=== PATIENT | female | born 1975 | race American Indian/Alaskan Native ===

== ENCOUNTER 2018-05-14 23:41 | Observation (INO) | payer MEDICAID ==
--- NOTE | 2018-05-14 23:51 | History and Physical Report ---
History of Present Illness Date of examination: 05/15/18 Date of admission: 05/15/2018 Chief complaint: vaginal bleeding History of present illness: Pt called provider last pm c/o having heavy bleeding since appointment on Thursday05/10/2018. She has long h/o menorrhagia and was most recently transfused last week at [facility]. She has had a hgb as low as 3. She presents c/o having used several pads per hour that were soaked and soiling clothing. She is scheduled for a Novasure ablation on Thursday05/21/[address] Wells. On Thursday she was to start lysteada but rx was not called in. I called in rx tonight as pt initially did not want to be admitted on her birthday , but meds were not covered by her insurance. Pt admitted for management of bleeding and transfusion if needed. 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 Assessment and Plan - Patient Problems (1) Dysfunctional uterine bleeding Current Visit: No Status: Acute Plan to address problem: -s/p office work up with negative EMBx -scheduled for novasure ablation Thursday05/21/18 -IV premarin followed by po provera until d/c home and surgery on Thursday -d/c home after transfusion if bleeding improved and stable. -plan of care d/w pt and all questions were addressed and answered. (2) Anemia Current Visit: Yes Status: Acute Qualifiers: Iron deficiency anemia type: chronic blood loss Plan to address problem: -transfusion -IV medications to slow progression of bleeding
[2018-05-14] MEDS ORDERED: ZOFRAN IV PRN (23:52)
[2018-05-14] MEDS ORDERED: AMBIEN PO PRN (23:52)
[2018-05-14] MEDS ORDERED: SODIUM CHLORIDE FLUSH SYRINGE 10 ML IV PRN (23:52)
[2018-05-15 01:14] LABS: Hematocrit 21.5 % (30.3-42.9); Hemoglobin 6.4 gm/dl (10.1-14.3); Mean Corpuscular HGB Conc 30 % (30-34); Platelet Count 361 K/mm3 (140-440); Red Blood Count 3.15 M/mm3 (3.65-5.03)
[2018-05-15 01:28] LABS: Mean Corpuscular Hemoglobin 20 pg (28-32); Mean Corpuscular Volume 68 fl (79-97); Red Cell Distribution Width 28.2 % (13.2-15.2)
[2018-05-15] MEDS ORDERED: NACL 0.9% 500 ML 500 ML IV ONE (01:52)
[2018-05-15] MEDS ORDERED: BENADRYL IV ONE (01:53)
[2018-05-15] MEDS ORDERED: WATER FOR INJ (PF) 10 ML ONE ×2 (02:12→08:01)
[2018-05-15] MEDS: PREMARIN IV SCH ×2 (02:31→08:16)
[2018-05-15 02:40] LABS: BUN/Creatinine Ratio 18; Blood Urea Nitrogen 11 mg/dL (7-17); Calcium 8.4 mg/dL (8.4-10.2); Hemolysis Index 20
[2018-05-15] MEDS ORDERED: BENADRYL PO ONE (02:57)
[2018-05-15] MEDS: TYLENOL PO PRN ×3 (03:09→17:03)
[2018-05-15 05:19] LABS: Band Neutrophils # (Manual) 0.1 K/mm3; Basophils % (Manual) 0 % (0.0-1.8); Eosinophils % (Manual) 0 % (0.0-4.3); Total Cells Counted 100
[2018-05-15 05:20] LABS: Anisocytosis 2+; Hypochromasia 3+; Platelet Estimate Consistent w Auto; Spherocytes Few; Target Cells Rare
--- NOTE | 2018-05-15 07:25 | Event Note ---
Date: 05/15/18 pt seen and evaluated. minimal bleeding noted on pad and seems to have responded to the iV premarin. Pt has not gotten blood yet due to antibodies in type and screen. Will transfuse and if bleeding remain stable d/c home after two units and repeat h/h done. Plan of care d/w pt and all questions were addressed and answered.
[2018-05-15] MEDS: COLACE PO SCH ×2 (09:23→21:44)
[2018-05-15] MEDS: SODIUM CHLORIDE FLUSH SYRINGE 10 ML IV SCH (09:24)
[2018-05-15] MEDS ORDERED: NACL 0.9% 500 ML 500 ML ONE (20:27)
[2018-05-16 04:20] LABS: Hematocrit 25.3 % (30.3-42.9); Hemoglobin 8.2 gm/dl (10.1-14.3)
--- NOTE | 2018-05-16 06:50 | Event Note ---
Date: 05/16/18 Appropriate h/h noted and pt feeling better. Will d/c home today on provera until day of procedure on Thursday with Dr Wells. Rx will be sent to pharmacy. Pt nurse aware pt being d/c home and will inform incoming RN at change of shifts.
--- NOTE | 2018-05-16 06:55 | Discharge Summary ---
Providers - Providers Date of Admission: 05/15/18 00:27 Date of discharge: 05/16/18 Attending physician: AKOSUA NAVA Primary care physician: BHAVIK GRIMES Hospitalization Reason for admission: other (menorrhagia) Discharge diagnosis: other (DUB, menorrhagia) Hospital course: Pt admitted for anemia and heavy vaginal bleeding.Since hospital stay bleeding has been moderate at best and improved with the premarin IV. It took some time to type and cross her blood due to antibodies being present. Pt doing well and will be d/c home today. Condition at discharge: Good Disposition: DC-01 TO HOME OR SELFCARE - Discharge Diagnoses (1) Dysfunctional uterine bleeding Status: Acute (2) Anemia Status: Acute Qualifiers: Iron deficiency anemia type: chronic blood loss Plan - Provider Discharge Summary Activity: routine Diet: routine Instructions: routine Additional instructions: [] Smoking cessation referral if applicable(refer to patient education folder for contact #) [] Refer to [facility]'s [facility] Booklet Call your doctor immediately for: * Fever > 100.5 * Heavy vaginal bleeding ( >1 pad per hour) * Severe persistent headache * Shortness of breath * Reddened, hot, painful area to leg or breast * Drainage or odor from incision. * Keep incision clean and dry at all times and follow doctor's instructions regarding bathing/showering - Follow up plan Follow up: BHAVIK GRIMES MD, PHD [Primary Care Provider] - 7 Days
--- NOTE | 2018-05-16 07:48 | Event Note ---
Date: 05/16/18 (pt states she feels much better) All questions addressed. RX Provera on chart Will start now prior to d/c Reviewed iron rich foods, encouraged po hydration, rest. Pt has her PreOp on 05-19-18 @ [id number]
[2018-05-16] MEDS: COLACE PO SCH (09:42)
[2018-05-16] MEDS ORDERED: PROVERA PO SCH (10:00)
[2018-05-16] MEDS: SODIUM CHLORIDE FLUSH SYRINGE 10 ML IV SCH (11:58)
[2018-05-16 15:34] VITALS: BP 113/74
== END 2018-05-16 11:55 | disposition home or self-care (01) ==
LOC: EDBD → UNDOADMOB 23:41 → 3A 23:41 → OB 05-15 00:27 → EDBD 05-15 00:27
PROVIDERS: ADMIT Obstetrics & Gynecology; ATTEND Obstetrics & Gynecology
DX: D50.0 Iron deficiency anemia secondary to blood loss (chronic) (principal); N93.8 Other specified abnormal uterine and vaginal bleeding
CPT/HCPCS: 36415; 36430; 80048; 85007; 85018; 85025; 86850; 86870; 86900; 86901; 86920; 96374; 96376; G0378; G0379; J1410; J7040; P9016

== ENCOUNTER → 2018-05-14 23:56 | Emergency (ER) | payer MEDICAID | END | disposition left against medical advice (07) | LOC: EDBD → EDSTATUS 00:22 → ED 23:56 | DX: N93.9 Abnormal uterine and vaginal bleeding, unspecified (principal); Z53.21 Procedure and treatment not carried out due to patient leaving prior to being seen by health care provider ==

== ENCOUNTER 2018-05-21 07:29 | Day surgery (SDC) | payer MEDICAID ==
--- NOTE | 2018-05-21 00:49 | History and Physical Report ---
History of Present Illness History of present illness: Patient has been reassessed/reevaluated. H&P has been reviewed. No interval changes. This is a 43 years old female who presents with menstrual disorder. The symptoms began >1 year ago. She complains of heavy bleeding, clotting, fatigue and cramping, but denies irregular menses, mid-cycle spotting, lack of menses, dysmenorrhea, history of ovarian cysts, history of thyroid disease, history of fibroids, history of PCOS, history of bleeding disorder and lightheadedness. Menstrual flow lasts 3 days and 5 days resulting in anemia . Patient's work up has included hysterosonogrm with benign endometrial biopsy Patient desires definitive treatment Vital Signs: Patient Profile: 43 Years Old Female LMP: 05/15/2018 Height: 68 inches (172.72 cm) Weight: 242 pounds (110.00 kg) BMI: 36.79 BSA: 2.22 Menstrual History: LMP (date): 05/15/2018 Past History : 7 Term Births: 6 Premature Births: 0 Living Children: 6 Para: 7 Mult. Births: 0 Prev : 2 Aborta: 0 Spont. Ab: 0 Ectopics: 0 # 1 Delivery date: 11/11/1995 Weeks Gestation: 41 Delivery type: Hours of labor: 0 Anesthesia type: spinal Delivery location: [place] Inf[facility] Sex: Male weight: 6lbs 1oz Name: "Alfred" Comments: Breech # 2 Delivery date: 06/22/1997 Weeks Gestation: 40 Delivery type: Hours of labor: 6 Anesthesia type: epidural Delivery location: [place] [facility] Sex: Female weight: [id number] Name: Obi # 3 Delivery date: 08/10/1999 Weeks Gestation: 40 Delivery type: Anesthesia type: epidural Delivery location: [place] Sex: Female weight: 7lb8oz Name: Emani # 4 Delivery date: 03/17/2003 Weeks Gestation: 40 Delivery type: Hours of labor: 0 Anesthesia type: spinal Delivery location: [facility] Infant Sex: Female weight: 8lb Name: Sherin Comments: Breech # 5 Delivery date: 09/23/2004 Weeks Gestation: 40 Delivery type: Hours of labor: 6 Anesthesia type: epidural Delivery location: [facility] Infant Sex: Female weight: [id number] Name: Aranza # 6 Delivery date: 01/04/2009 Weeks Gestation: 40 Delivery type: Hours of labor: 4 Anesthesia type: none Delivery location: [facility] Sex: Female weight: 7lb 0oz Name: Lorenza # 7 Delivery date: 11/27/2010 Weeks Gestation: 39 Delivery type: Delivery location: [facility] Infant 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 Operations: x3 + BTL Abnormal PAP: negative Uterine Anomaly: negative Infection History HIV Risk Eval: no Hx of STD: none Current Allergies (reviewed today): No known allergies Past Medical History: Negative Past Medical History Past Surgical History: x3 + BTL Family History Summary: General Comments - FH: Family History Breast Cancer Family History Coronary Heart Disease male < 55 Family History of Diabetes Family History of Hypertension No Family History of Cervical Cancer No Family History of Colon Cancer No Family History of Ovarvian Cancer Risk Factors: Smoked Tobacco Use: Never smoker Smokeless Tobacco Use: Never Passive smoke exposure: no Drug use: no HIV high-risk behavior: no Alcohol use: no Exercise: yes Seatbelt use: 100 % Review of Systems General Denies fever, chills, sweats, anorexia, fatigue, weakness, malaise, weight loss and sleep disorder. Complains of menorrhagia and abnormal vaginal bleeding. Denies vaginal discharge, incontinence, dysuria, hematuria, urinary frequency, amenorrhea, pelvic pain, genital sores, decreased libido, painful periods, painful sex, urinary urgency, hot flashes, vaginal dryness, vaginal itching and vaginal odor. CV Denies chest pains, palpitations, syncope, dyspnea on exertion, orthopnea, PND and peripheral edema. Resp Denies cough, dyspnea at rest, excessive sputum, hemoptysis, wheezing and pleurisy. GI Denies nausea, vomiting, diarrhea, constipation, change in bowel habits, abdominal pain, melena, hematochezia, jaundice, gas/bloating, indigestion/ heartburn, dysphagia and odynophagia. Breast Denies left breast lump, right breast lump, nipple discharge, bloody discharge from nipple, breast pain, abnormal mammogram and breast enlargement. Psych Denies depression, anxiety, irritability and mood swings. Past History Past Medical History: other (See HPI) Past Surgical History: Other (See HPI) Social history: other (See HPI) Family history: other (See HPI) Medications and Allergies Allergies Allergy/AdvReac Type Severity Reaction Status Date / Time No Known Allergies Allergy Verified 05/15/18 00:28 Home Medications Medication Instructions Recorded Confirmed Last Taken Type Acetaminophen [Tylenol Extra 1,000 mg PO TID PRN 05/17/18 05/21/18 05/19/18 History Strength] Review of Systems Constitutional: other (See HPI) Exam - Physical Exam Narrative exam: HEENT: normocephalic, no lesions or deformities Skin no ulcers, xanthomas Chest: respiratory effort normal, clear to auscultation Breasts: no masses or nipple discharge CV: regular, normal S1-S2, no murmur, no rub, no gallop Abdomen: soft, non-tender, no masses, bowel sounds normal Neuro: no gross anomalities Extremities: no clubbing, cyanosis, or edema WOOD BARKER Exams Vulva/Vagina: normal appearance, no discharge, lesions. No evidence of cystocele or rectocele. Cervix: normal appearance, no lesions, no discharge Uterus: enlarged uterus 8 - 10 weeks size Adnexae: no masses or tenderness Rectovaginal: exam defered Results - Labs CBC & Chem 7: 05/21/18 08:41 Assessment and Plan - Patient Problems (1) Menometrorrhagia Current Visit: No Status: Acute Plan to address problem: Discussed risks and benefits of procedure. Informed endometrial ablation does not treat dymenorrhea or myomas. Patient does not desire future fertility . Discussed risk of surgery including infection, bleeding and risk of perforating her uterus. Questions answered. Patient understands and desires to proceed :
[2018-05-21] MEDS ORDERED: NARCAN 0.4 MG/1 ML IV PRN (08:36)
[2018-05-21] MEDS ORDERED: DEMEROL IV PRN (08:36)
[2018-05-21] MEDS ORDERED: DILAUDID IV PRN (08:36)
[2018-05-21] MEDS ORDERED: TORADOL IV PRN (08:36)
[2018-05-21] MEDS ORDERED: NACL BACTERIOSTATIC INFILTRATI ONE (08:41)
--- NOTE | 2018-05-21 08:41 | Anesthesia Day of Surgery ---
Anesthesia Day of Surgery - Day of Surgery Patient Examined: Yes Patient H&P Reviewed: Yes Patient is NPO: Yes
--- NOTE | 2018-05-21 08:41 | Anesthesia Consultation ---
Anesthesia Consult and Med Hx Date of service: 05/21/18 - Airway Anesthetic Teeth Evaluation: Good ROM Head & Neck: Adequate Mental/Hyoid Distance: Adequate Mallampati Class: Class II Intubation Access Assessment: Good - Pulmonary Exam CTA: Yes - Cardiac Exam Cardiac Exam: RRR - Pre-Operative Health Status ASA Pre-Surgery Classification: ASA1, ASA2 Proposed Anesthetic Plan: General - Pre-Anesthesia Comment Pre-Anesthesia Comments: Patient tolerates 6 METS. no Chest pain or SOB. no N/ V. no cold or flu - Pulmonary Hx Smoking: No Hx Sleep Apnea: No (LOLI PRE SCREEN LOW RISK.) - Cardiovascular System Hx Hypertension: No - Central Nervous System Hx Psychiatric Problems: No - Hematic Hx Anemia: Yes - Other Systems Hx Cancer: No (mother had breast cancer)
[2018-05-21] MEDS ORDERED: LACTATED RINGERS 1,000 ML IV SCH (09:00)
[2018-05-21] MEDS ORDERED: ZOFRAN IV NR (09:00)
[2018-05-21 09:41] LABS: Hematocrit 27.9 % (30.3-42.9); Hemoglobin 8.4 gm/dl (10.1-14.3)
[2018-05-21] MEDS ORDERED: XYLOCAINE CARDIAC IV ONE (12:16)
[2018-05-21] MEDS ORDERED: DIPRIVAN 10 MG/ML IV ONE (12:17)
[2018-05-21] MEDS ORDERED: SUBLIMAZE ONE (12:17)
[2018-05-21] MEDS ORDERED: VERSED ONE (12:48)
[2018-05-21] MEDS ORDERED: ZOFRAN ONE (12:48)
[2018-05-21] MEDS ORDERED: ePHEDrine 50 MG/5 ML-0.9% NACL IV ONE (12:50)
[2018-05-21] MEDS ORDERED: NACL 0.9% IR ONE ×2 (12:55)
[2018-05-21] MEDS ORDERED: DECADRON ONE (13:00)
--- NOTE | 2018-05-21 13:33 | Operative Report ---
Operative Report Operative Report: Date of procedure: 05/21/2018 Pre-operative diagnosis: Menorrhagia Post-operative diagnosis: Same Procedure name(s): NovaSure endometrial ablation with hysteroscopy Surgeon: Evaristo Wells MD Director Of Counterintelligence: None Anesthesia: General EBL: Minimal Complications: None Findings: Patient very thick endometrium unable to clearly see ostium due to the endometrial thickness and the myomas impinging on the cavity Specimen(s):none Procedure: Patient was brought to operating room. Where general anesthesia was induced on difficulty. She was placed in the dorsal lithotomy position. Prepped and draped in usual sterile manner. Urinary bladder was emptied with a red rubber catheter. Speculum was placed in the vagina. The cervical length and uterine cavity was then assessed with a sound. Cervical length was 4.0 cm the total uterine cavity was 12 cm. The hysteroscope was then placed through the cervical os. With the findings as noted above. The NovaSure was then placed through the cervical os the uterine width was then measured at the 4.4 cm. After passing the testing for cavity integrity, and NovaSure ablation was then started. The power setting was at 161 and the procedure lasted 91seconds. The NovaSure applicator was then removed. There was large amount of tissue on the NovaSure. Post procedure hysteroscopy showed a complete cavity ablation. Our instruments are removed. The patient tolerated the procedure well and was awakened in the operating room. Accompanied to recovery in good condition.
--- NOTE | 2018-05-21 13:35 | Short Stay Summary ---
Short Stay Documentation Date of service: 05/21/18 - History H&P: dictated Past Medical History: other (See HPI) Past Surgical History: Other (See HPI) Social history: other (See HPI) - Allergies and Medications Current Medications: Allergies No Known Allergies Allergy (Verified 05/15/18 00:28) Home Medications Medication Instructions Recorded Confirmed Last Taken Type Acetaminophen [Tylenol Extra 1,000 mg PO TID PRN 05/17/18 05/21/18 05/19/18 History Strength] Acetaminophen/Codeine [Tylenol #3] 1 tab PO Q4HR PRN #20 tablet 05/21/18 Unknown Rx Doxycycline [Vibramycin CAP] 100 mg PO Q12HR #14 capsule 05/21/18 Unknown Rx Ibuprofen [Motrin 800 MG tab] 800 mg PO Q6H PRN #30 tablet 05/21/18 Unknown Rx Active Medications Hydromorphone HCl (Dilaudid) 0.25 mg IV Q10MIN PRN PRN Reason: Pain, Moderate (4-6) Stop: 05/21/18 18:00 Hydromorphone HCl (Dilaudid) 0.5 mg IV Q10MIN PRN PRN Reason: Pain , Severe (7-10) Stop: 05/21/18 18:00 Lactated Ringer's (Lactated Ringers) 1,000 mls @ 150 mls/hr IV DIRECT KARLA Last Admin: 05/21/18 09:00 Dose: 150 mls/hr Ketorolac Tromethamine (Toradol) 30 mg IV ONCE PRN PRN Reason: Pain, Moderate (4-6) Stop: 05/21/18 18:00 Meperidine HCl (Demerol) 25 mg IV ONCE PRN PRN Reason: Shivering Stop: 05/21/18 18:00 Naloxone HCl (Narcan 0.4 Mg/1 Ml) 0.1 mg IV Q2MIN PRN PRN Reason: Res Rate </= 8 or 02 SAT < 92% Ondansetron HCl (Zofran) 4 mg IV PREOP NR Stop: 05/21/18 23:59 Last Admin: 05/21/18 09:01 Dose: 4 mg - Brief post op/procedure progress note Date of procedure: 05/21/18 (see dictated operative note) - Hospital course Hospital course: Patient was admitted underwent the above him procedure without any complications. Patient will be discharged with follow-up in office in 1-2 weeks for postop check. - Disposition Condition at discharge: Good Disposition: DC-01 TO HOME OR SELFCARE - Discharge Diagnoses (1) Menometrorrhagia Status: Acute Short Stay Discharge Plan Activity: advance as tolerated Diet: regular Additional Instructions: Patient was told to expect discharge for several days and call office for fever chills nausea vomiting or pain not relieved with pain medicine. Follow up with: BHAVIK GRIMES MD, PHD [Primary Care Provider] - 7 Days Prescriptions: Ibuprofen [Motrin 800 MG tab] 800 mg PO Q6H PRN #30 tablet PRN Reason: Pain Acetaminophen/Codeine [Tylenol #3] 1 tab PO Q4HR PRN #20 tablet PRN Reason: Pain Doxycycline [Vibramycin CAP] 100 mg PO Q12HR #14 capsule
[2018-05-21] MEDS: DILAUDID IV PRN ×2 (13:53→14:40)
[2018-05-21 16:01] VITALS: BP 107/65
--- NOTE | 2018-05-24 06:00 | Post Anesthesia Evaluation ---
- Post Anesthesia Evaluation Patient Participated: Yes Airway Patent: Yes Stable Respiratory Function: Yes Nausea/Vomiting: No Temp > 96.8F: Yes Pain Manageable: Yes Adequeate Hydration: Yes Anesthesia Complications: No Block Receding Appropriately: Not Applicable Patient on Ventilator: No
== END 2018-05-21 15:50 | disposition home or self-care (01) ==
LOC: EDBD → OR 07:29
PROVIDERS: ATTEND Obstetrics & Gynecology
DX: N92.0 Excessive and frequent menstruation with regular cycle (principal)
CPT/HCPCS: 36415; 58563; 81025; 85014; 85018; A4217; J1100; J1170; J1885; J2001; J2250; J2405; J2704; J3010; J7120

== ENCOUNTER 2019-01-26 19:15 | Emergency (ER) | payer MEDICAID ==
--- NOTE | 2019-01-26 19:30 | Emergency Department Report ---
Blank Doc - Documentation Documentation: This is a 43-year-old female that presents with vaginal bleeding and pelvic pain x1 day. Denies any other symptoms or complaints. This initial assessment/diagnostic orders/clinical plan/treatment(s) is/are subject to change based on patient's health status, clinical progression and re- assessment by fellow clinical providers in the ED. Further treatment and workup at subsequent clinical providers discretion. Patient/guardians urged not to elope from the ED as their condition may be serious if not clinically assessed and managed. Initial orders include: 1- Patient sent to [facility] for further evaluation and treatment 2- UA 3- Labs
[2019-01-26 20:21] LABS: BUN/Creatinine Ratio 11; Blood Urea Nitrogen 9 mg/dL (7-17); Calcium 8.6 mg/dL (8.4-10.2); Hemolysis Index 5; Mean Corpuscular HGB Conc 29 % (30-34); Platelet Count 460 K/mm3 (140-440); Red Blood Count 4.72 M/mm3 (3.65-5.03); Red Cell Distribution Width 19.6 % (13.2-15.2)
--- NOTE | 2019-01-26 20:30 | Emergency Department Report ---
ED Female HPI - General Chief complaint: Vaginal Bleeding Stated complaint: ANEMIC WITH FATIGUE Time Seen by Provider: 01/26/19 19:29 Source: patient Mode of arrival: Ambulatory Limitations: No Limitations - History of Present Illness Initial comments: Patient is 43 years old female with history of fibroid. Patient presented to the ER complaining of heavy bleeding since yesterday. Patient also reported a pelvic cramping. Patient stated that she had her fibroid removed last year by Dr. Stevenson. Patient complaining of mild dizziness but denied any chest pain or shortness of breath. Patient denied any fever, nausea or vomiting. No vaginal discharge. MD Complaint: vaginal bleeding, pelvic pain -: Last night Location: suprapubic Radiation: non-radiating Severity: moderate Severity scale (0 -10): 5 Consistency: intermittent - Related Data Home Medications Medication Instructions Recorded Confirmed Last Taken Acetaminophen [Tylenol Extra 1,000 mg PO TID PRN 05/17/18 05/21/18 05/19/18 Strength] Previous Rx's Medication Instructions Recorded Last Taken Type Acetaminophen/Codeine [Tylenol #3] 1 tab PO Q4HR PRN #20 tablet 05/21/18 Unknown Rx Doxycycline [Vibramycin CAP] 100 mg PO Q12HR #14 capsule 05/21/18 Unknown Rx Ibuprofen [Motrin 800 MG tab] 800 mg PO Q6H PRN #30 tablet 05/21/18 Unknown Rx Allergies Allergy/AdvReac Type Severity Reaction Status Date / Time No Known Allergies Allergy Verified 05/15/18 00:28 ED Review of Systems ROS: Stated complaint: ANEMIC WITH FATIGUE Other details as noted in HPI Comment: All other systems reviewed and negative Constitutional: denies: chills, fever Respiratory: denies: cough, orthopnea, shortness of breath, SOB with exertion, SOB at rest, wheezing Cardiovascular: denies: chest pain, palpitations Gastrointestinal: abdominal pain. denies: nausea, vomiting, diarrhea, constipation, hematemesis, melena, hematochezia Genitourinary: abnormal menses Musculoskeletal: denies: back pain Neurological: denies: headache, weakness, numbness, paresthesias, confusion ED Past Medical Hx - Past Medical History Hx Hypertension: No Hx Headaches / Migraines: Yes Hx HIV: No Additional medical history: fibroids - Surgical History Additional Surgical History: ablasion 2018, x2 - Social History Smoking Status: Never Smoker Substance Use Type: None - Medications Home Medications: Home Medications Medication Instructions Recorded Confirmed Last Taken Type Acetaminophen [Tylenol Extra 1,000 mg PO TID PRN 05/17/18 05/21/18 05/19/18 History Strength] Acetaminophen/Codeine [Tylenol #3] 1 tab PO Q4HR PRN #20 tablet 05/21/18 Unknown Rx Doxycycline [Vibramycin CAP] 100 mg PO Q12HR #14 capsule 05/21/18 Unknown Rx Ibuprofen [Motrin 800 MG tab] 800 mg PO Q6H PRN #30 tablet 05/21/18 Unknown Rx ED Physical Exam - General Limitations: No Limitations General appearance: alert, in no apparent distress - Head Head exam: Present: atraumatic, normocephalic, normal inspection - Eye Eye exam: Present: normal appearance, PERRL - ENT ENT exam: Present: normal exam, normal orophraynx, mucous membranes moist - Neck Neck exam: Present: normal inspection, full ROM. Absent: tenderness, meningismus, lymphadenopathy, thyromegaly - Respiratory Respiratory exam: Present: normal lung sounds bilaterally. Absent: respiratory distress, wheezes, rales, rhonchi, chest wall tenderness, accessory muscle use, decreased breath sounds, prolonged expiratory - Cardiovascular Cardiovascular Exam: Present: regular rate, normal rhythm, normal heart sounds - GI/Abdominal GI/Abdominal exam: Present: soft, normal bowel sounds. Absent: distended, tenderness, guarding, rebound, rigid, organomegaly, mass, bruit, pulsatile mass, hernia - Extremities Exam Extremities exam: Present: normal inspection, full ROM, normal capillary refill. Absent: tenderness, pedal edema, joint swelling, calf tenderness - Back Exam Back exam: Present: normal inspection, full ROM. Absent: tenderness, CVA tenderness (R), CVA tenderness (L), muscle spasm, paraspinal tenderness, vertebral tenderness - Neurological Exam Neurological exam: Present: alert, oriented X3, CN II-XII intact, normal gait, reflexes normal - Psychiatric Psychiatric exam: Present: normal mood - Skin Skin exam: Present: warm, intact, normal color ED Course Vital Signs 01/26/19 01/26/19 19:29 21:10 Temperature 98.7 F 99 F Pulse Rate 78 78 Respiratory 16 16 Rate Blood Pressure 130/95 Blood Pressure 114/90 [Right] O2 Sat by Pulse 100 99 Oximetry ED Medical Decision Making - Lab Data Result diagrams: 01/26/19 19:54 01/26/19 19:54 - Medical Decision Making Patient is 43 years old female with history of fibroid. Patient presented to the ER complaining of heavy bleeding since yesterday. Patient also reported a pelvic cramping. Patient stated that she had her fibroid removed last year by Dr. Stevenson. Patient complaining of mild dizziness but denied any chest pain or shortness of breath. Patient denied any fever, nausea or vomiting. No vaginal discharge. Patient vital sign stable. Hemoglobin is 8.4 which is same as when she was here last time in 2018. There is no need for blood transfusion at this moment. I discussed with the patient however results and the need to follow-up with Dr. Stevenson in the next 2-3 days for further management. Critical care attestation.: If time is entered above; I have spent that time in minutes in the direct care of this critically ill patient, excluding procedure time. ED Disposition Clinical Impression: Menometrorrhagia, Vaginal bleeding, abnormal Disposition: DC-01 TO HOME OR SELFCARE Is pt being admited?: No Condition: Stable Instructions: Uterine Fibroids (ED), Menorrhagia (ED) Referrals: PRIMARY CAREMD [Primary Care Provider] - 3-5 Days MARCO ANTONIO STEVENSON MD [Staff Physician] - 3-5 Days
[2019-01-26 20:34] LABS: Hematocrit 28.7 % (30.3-42.9); Hemoglobin 8.4 gm/dl (10.1-14.3); Mean Corpuscular Volume 61 fl (79-97)
[2019-01-26 21:38] LABS: INR 0.95 (0.87-1.13)
[2019-01-26 21:39] LABS: Partial Thromboplastin Time 28.6 Sec. (24.2-36.6)
[2019-01-26 21:55] LABS: Bilirubin,Urine NEG (Negative); Blood,Urine LG (Negative); Color,Urine Red (Yellow); Urobilinogen,Urine < 2.0 mg/dL (<2.0)
[2019-01-26 21:58] LABS: Bacteria,Urine 4+ /HPF (Negative); Mucus,Urine 3+ /HPF
[2019-01-26 21:59] LABS: HCG Qualitative,Urine Negative (Negative)
[2019-01-26 22:04] LABS: RBC,Urine > 182.0 /HPF (0.0-6.0)
[2019-01-26] MEDS ORDERED: MORPHINE ONE (22:27)
[2019-01-26] MEDS ORDERED: ZOFRAN ONE (22:27)
[2019-01-26 22:31] LABS: Basophils % (Manual) 0 % (0.0-1.8); Total Cells Counted 100
[2019-01-26 22:34] LABS: Anisocytosis 1+; Hypochromasia 1+
[2019-01-26 22:35] LABS: Platelet Estimate Consistent w Auto; Target Cells 1+
[2019-01-26 22:49] VITALS: BP 139/83
== END 2019-01-26 22:48 | disposition home or self-care (01) ==
LOC: ED 19:15
DX: N92.0 Excessive and frequent menstruation with regular cycle (principal); G43.909 Migraine, unspecified, not intractable, without status migrainosus
CPT/HCPCS: 36415; 80048; 81001; 81025; 84703; 85007; 85025; 85610; 85730; 86850; 86900; 86901; J2270; J2405

== ENCOUNTER 2019-10-05 18:24 | Observation (INO) | payer MEDICAID ==
--- NOTE | 2019-10-05 18:54 | Emergency Department Report ---
Blank Doc - Documentation Documentation: 44-year-old female that presents with vaginal bleeding x1 month and generalized weakness. This initial assessment/diagnostic orders/clinical plan/treatment(s) is/are subject to change based on patient's health status, clinical progression and re- assessment by fellow clinical providers in the ED. Further treatment and workup at subsequent clinical providers discretion. Patient/guardians urged not to elope from the ED as their condition may be serious if not clinically assessed and managed. Initial orders include: 1- Patient sent to [facility] for further evaluation and treatment 2- labs 3- UA
[2019-10-05 19:35] LABS: BUN/Creatinine Ratio 12; Blood Urea Nitrogen 7 mg/dL (7-17); Calcium 8.6 mg/dL (8.4-10.2); Hemolysis Index 3; Red Blood Count 3.61 M/mm3 (3.65-5.03)
[2019-10-05 19:37] LABS: Hematocrit 20.6 % (30.3-42.9); Hemoglobin 5.7 gm/dl (10.1-14.3); Mean Corpuscular Volume 57 fl (79-97)
[2019-10-05 19:38] LABS: Mean Corpuscular HGB Conc 28 % (30-34); Platelet Count 600 K/mm3 (140-440); Red Cell Distribution Width 20.6 % (13.2-15.2)
[2019-10-05 20:20] LABS: Basophils % (Manual) 0 % (0.0-1.8); Total Cells Counted 100
[2019-10-05 20:22] LABS: Anisocytosis 1+; Hypochromasia 2+; Platelet Estimate Consistent w Auto; Target Cells 1+
[2019-10-05] MEDS ORDERED: SODIUM CHLORIDE 0.9% 500 ML 500 ML IV ONE (20:30)
--- NOTE | 2019-10-05 21:49 | Ultrasound Report ---
CLINICAL DATA: vaginal bleeding TECHNICAL DATA: Real-time imaging of the pelvic structures were performed along with Doppler imaging of the adnexa. O nly transabdominal imaging was performed. FINDINGS: The uterus is of normal size and echogenicity. There are 2 uterine fibroids present largest measuring 3.3 x 2.8 x 2.8 cm and the smaller measuring 2.6 x 2.8 x 2.0 cm. Endometrial thickness difficult to visualize but appears prominent. The right and left ovaries are of symmetric size and echogenicity. T here are no ovarian or adnexal masses except for a 2.2 cm cyst left ovary. Doppler imaging demonstrates normal vascular flow to both ovaries. There is no significant quantity of free fluid dependently within the pelvis. IMPRESSION: 1. Uterine fibroids 2. Left ovarian cyst 3. Probable thickened endometrium very difficult to visualize, endovaginal imaging would be of benefi t WOMEN OF REPRODUCTIVE AGE: 1. Cysts <=3 cm: Normal physiologic findings; at the discretion of the interpreting physician whether or not to describe them in the imaging report; do not need follow-up. 2. Cysts >3 and <=5 cm: Should be described in the imaging report with a statement that they are almo st certainly benign; do not need follow-up. 3. Cysts >5 and <=7 cm: Should be described in the imaging report with a statement that they are almo st certainly benign; yearly follow-up with US recommended. 4. Cysts >7 cm: Since these may be difficult to assess completely with US, further imaging with magne tic resonance (MR) or surgical evaluation should be considered. POSTMENOPAUSAL WOMEN: 1. Cysts <=1 cm: Are clinically inconsequential; at the discretion of the interpreting physician whet her or not to describe them in the imaging report; do not need follow-up. 2. Cysts >1 and <=7 cm: Should be described in the imaging report with statement that they are almost certainly benign; yearly follow-up, at least initially, with US recommended. Some practices may opt to increase the lower size threshold for follow-up from 1 cm to as high as 3 cm. One may opt to deepak nue follow-up annually or to decrease the frequency of follow-up once stability or decrease in size h as been confirmed. Cysts in the larger end of this range should still generally be followed on a regu lar basis. 3. Cysts >7 cm: Since these may be difficult to assess completely with US, further imaging with MR or surgical evaluation should be considered. Signer Name: Cliff Hansen MD Signed: 10/05/2019 9:44 PM Workstation Name: [id number]
--- NOTE | 2019-10-05 22:14 | Emergency Department Report ---
ED General Adult HPI - General Chief complaint: Vaginal Bleeding Stated complaint: WEAKNESS/FATIGUE Time Seen by Provider: 10/05/19 18:53 Source: patient Mode of arrival: Ambulatory Limitations: No Limitations - History of Present Illness Initial comments: The patient presents to the ED with a chief complaint of fatigue and vaginal bleeding. She complains of vaginal bleeding for the last month without cessation. Patient has a history of anemia that required transfusions secondary to her vaginal bleeding. Her last transfusion was December or January. Patient denies any chest pain, abdominal pain, headache. -: Gradual Severity scale (0 -10): 0 Consistency: constant Improves with: none Worsens with: none Associated Symptoms: denies other symptoms Treatments Prior to Arrival: none - Related Data Home Medications Medication Instructions Recorded Confirmed Last Taken Acetaminophen [Tylenol Extra 1,000 mg PO TID PRN 05/17/18 05/21/18 05/19/18 Strength] Previous Rx's Medication Instructions Recorded Last Taken Type Acetaminophen/Codeine [Tylenol #3] 1 tab PO Q4HR PRN #20 tablet 05/21/18 Unknown Rx DOXYCYCLINE Hyclate [Vibramycin 100 mg PO Q12HR #14 capsule 05/21/18 Unknown Rx CAP] Ibuprofen [Motrin 800 MG tab] 800 mg PO Q6H PRN #30 tablet 05/21/18 Unknown Rx Ferrous Sulfate [Feosol 325 MG tab] 325 mg PO QDAY #30 tablet 01/26/19 Unknown Rx Ondansetron [Zofran Odt] 4 mg PO Q8HR PRN #14 tab.rapdis 01/26/19 Unknown Rx medroxyPROGESTERone ACETATE 10 mg PO QDAY #10 tablet 01/26/19 Unknown Rx [Provera] traMADoL [Ultram 50 MG tab] 50 mg PO Q4HR PRN #14 tablet 01/26/19 Unknown Rx Allergies Allergy/AdvReac Type Severity Reaction Status Date / Time No Known Allergies Allergy Verified 05/15/18 00:28 ED Review of Systems ROS: Stated complaint: WEAKNESS/FATIGUE Other details as noted in HPI Comment: All other systems reviewed and negative Constitutional: denies: chills, fever Eyes: denies: eye pain, eye discharge, vision change ENT: denies: ear pain, throat pain Respiratory: denies: cough, shortness of breath, wheezing Cardiovascular: denies: chest pain, palpitations Endocrine: no symptoms reported Gastrointestinal: denies: abdominal pain, nausea, diarrhea Genitourinary: denies: urgency, dysuria, discharge Musculoskeletal: denies: back pain, joint swelling, arthralgia Skin: denies: rash, lesions Neurological: denies: headache, weakness, paresthesias Psychiatric: denies: anxiety, depression Hematological/Lymphatic: denies: easy bleeding, easy bruising ED Past Medical Hx - Past Medical History Previous Medical History?: Yes Hx Hypertension: No Hx Headaches / Migraines: Yes Hx HIV: No Additional medical history: Uterine fibroids - Surgical History Past Surgical History?: Yes Additional Surgical History: C section, ablation - Social History Smoking Status: Never Smoker Substance Use Type: None - Medications Home Medications: Home Medications Medication Instructions Recorded Confirmed Last Taken Type Acetaminophen [Tylenol Extra 1,000 mg PO TID PRN 05/17/18 05/21/18 05/19/18 History Strength] Acetaminophen/Codeine [Tylenol #3] 1 tab PO Q4HR PRN #20 tablet 05/21/18 Unknown Rx DOXYCYCLINE Hyclate [Vibramycin 100 mg PO Q12HR #14 capsule 05/21/18 Unknown Rx CAP] Ibuprofen [Motrin 800 MG tab] 800 mg PO Q6H PRN #30 tablet 05/21/18 Unknown Rx Ferrous Sulfate [Feosol 325 MG tab] 325 mg PO QDAY #30 tablet 01/26/19 Unknown Rx Ondansetron [Zofran Odt] 4 mg PO Q8HR PRN #14 tab.rapdis 01/26/19 Unknown Rx medroxyPROGESTERone ACETATE 10 mg PO QDAY #10 tablet 01/26/19 Unknown Rx [Provera] traMADoL [Ultram 50 MG tab] 50 mg PO Q4HR PRN #14 tablet 01/26/19 Unknown Rx ED Physical Exam - General Limitations: No Limitations General appearance: alert, in no apparent distress - Head Head exam: Present: atraumatic, normocephalic - Eye Eye exam: Present: normal appearance, PERRL, EOMI - ENT ENT exam: Present: mucous membranes moist - Neck Neck exam: Present: normal inspection - Respiratory Respiratory exam: Present: normal lung sounds bilaterally. Absent: respiratory distress - Cardiovascular Cardiovascular Exam: Present: regular rate, normal rhythm. Absent: systolic murmur, diastolic murmur, rubs, gallop - GI/Abdominal GI/Abdominal exam: Present: soft, normal bowel sounds. Absent: distended, tenderness - External exam: Present: other (deferred) Speculum exam: Present: other (deferred) Bi-manual exam: Present: other (deferred) - Extremities Exam Extremities exam: Present: normal inspection - Back Exam Back exam: Present: normal inspection - Neurological Exam Neurological exam: Present: alert, oriented X3, CN II-XII intact. Absent: motor sensory deficit - Psychiatric Psychiatric exam: Present: normal affect, normal mood - Skin Skin exam: Present: warm, dry, intact, normal color. Absent: rash ED Course Vital Signs 10/05/19 10/05/19 10/05/19 18:54 20:30 20:43 Temperature 98.3 F 98.3 F Pulse Rate 73 65 69 Respiratory 18 18 16 Rate Blood Pressure 133/80 116/64 Blood Pressure 116/74 [Left] O2 Sat by Pulse 99 100 100 Oximetry 10/05/19 10/05/19 10/05/19 21:15 21:30 22:01 Temperature Pulse Rate 65 63 Respiratory 18 16 15 Rate Blood Pressure 116/64 115/54 124/103 Blood Pressure [Left] O2 Sat by Pulse 100 100 100 Oximetry ED Medical Decision Making - Lab Data Result diagrams: 10/05/19 19:04 10/05/19 19:04 Lab Results 10/05/19 10/05/19 10/05/19 Range/Units 19:04 19:04 19:04 WBC 8.7 (4.5-11.0) K/mm3 RBC 3.61 L (3.65-5.03) M/mm3 Hgb 5.7 L* (10.1-14.3) gm/dl Hct 20.6 L (30.3-42.9) % MCV 57 L (79-97) fl MCH 16 L (28-32) pg MCHC 28 L (30-34) % RDW 20.6 H (13.2-15.2) % Plt Count 600 H (140-440) K/mm3 Lymph % (Auto) Judicial Registrar [place] % (Auto) Judicial Registrar Eos % (Auto) Judicial Registrar Baso % (Auto) Judicial Registrar Lymph # Judicial Registrar [place] # Judicial Registrar Eos # Judicial Registrar Baso # Judicial Registrar Add Manual Diff Complete Total Counted 100 Seg Neutrophils % Judicial Registrar Seg Neuts % (Manual) 73.0 H (40.0-70.0) % Band Neutrophils % 0 % Lymphocytes % (Manual) 16.0 (13.4-35.0) % Reactive Lymphs % (Man) 0 % Monocytes % (Manual) 3.0 (0.0-7.3) % Eosinophils % (Manual) 8.0 H (0.0-4.3) % Basophils % (Manual) 0 (0.0-1.8) % Metamyelocytes % 0 % Myelocytes % 0 % Promyelocytes % 0 % Blast Cells % 0 % Nucleated RBC % Not Reportable Seg Neutrophils # Judicial Registrar Seg Neutrophils # Man 6.4 (1.8-7.7) K/mm3 Band Neutrophils # 0.0 K/mm3 Lymphocytes # (Manual) 1.4 (1.2-5.4) K/mm3 Abs React Lymphs (Man) 0.0 K/mm3 Monocytes # (Manual) 0.3 (0.0-0.8) K/mm3 Eosinophils # (Manual) 0.7 H (0.0-0.4) K/mm3 Basophils # (Manual) 0.0 (0.0-0.1) K/mm3 Metamyelocytes # 0.0 K/mm3 Myelocytes # 0.0 K/mm3 Promyelocytes # 0.0 K/mm3 Blast Cells # 0.0 K/mm3 WBC Morphology Not Reportable Hypersegmented Neuts Not Reportable Hyposegmented Neuts Not Reportable Hypogranular Neuts Not Reportable Smudge Cells Not Reportable Toxic Granulation Not Reportable Toxic Vacuolation Not Reportable Dohle Bodies Not Reportable Pelger-Huet Anomaly Not Reportable Stanislaw Rods Not Reportable Platelet Estimate Consistent w auto Clumped Platelets Not Reportable Plt Clumps, EDTA Not Reportable Large Platelets Not Reportable Giant Platelets Not Reportable Platelet Satelliting Not Reportable Plt Morphology Comment Not Reportable RBC Morphology Not Reportable Dimorphic RBCs Not Reportable Polychromasia Not Reportable Hypochromasia 2+ Poikilocytosis Not Reportable Anisocytosis 1+ Microcytosis 1+ Macrocytosis Not Reportable Spherocytes Not Reportable Pappenheimer Bodies Not Reportable Sickle Cells Not Reportable Target Cells 1+ Tear Drop Cells Not Reportable Ovalocytes Not Reportable Helmet Cells Not Reportable Chen-St. Libory Bodies Not Reportable [place] Rings Not Reportable López Cells Not Reportable Bite Cells Not Reportable Crenated Cell Not Reportable Elliptocytes Not Reportable Acanthocytes (Spur) Not Reportable Rouleaux Not Reportable Hemoglobin C Crystals Not Reportable Schistocytes Not Reportable Malaria parasites Not Reportable Alexis Bodies Not Reportable Hem Pathologist Commnt No Sodium 141 (137-145) mmol/L Potassium 4.0 (3.6-5.0) mmol/L Chloride 108.1 H (98-107) mmol/L Carbon Dioxide 21 L (22-30) mmol/L Anion Gap 16 mmol/L BUN 7 (7-17) mg/dL Creatinine 0.6 L (0.7-1.2) mg/dL Estimated GFR > 60 ml/min BUN/Creatinine Ratio 12 % Glucose 100 (65-100) mg/dL Calcium 8.6 (8.4-10.2) mg/dL HCG, Qual Negative (Negative) Blood Type Antibody Screen Crossmatch 10/05/19 Range/Units 20:30 WBC (4.5-11.0) K/mm3 RBC (3.65-5.03) M/mm3 Hgb (10.1-14.3) gm/dl Hct (30.3-42.9) % MCV (79-97) fl MCH (28-32) pg MCHC (30-34) % RDW (13.2-15.2) % Plt Count (140-440) K/mm3 Lymph % (Auto) [place] % (Auto) Eos % (Auto) Baso % (Auto) Lymph # [place] # Eos # Baso # Add Manual Diff Total Counted Seg Neutrophils % Seg Neuts % (Manual) (40.0-70.0) % Band Neutrophils % % Lymphocytes % (Manual) (13.4-35.0) % Reactive Lymphs % (Man) % Monocytes % (Manual) (0.0-7.3) % Eosinophils % (Manual) (0.0-4.3) % Basophils % (Manual) (0.0-1.8) % Metamyelocytes % % Myelocytes % % Promyelocytes % % Blast Cells % % Nucleated RBC % Seg Neutrophils # Seg Neutrophils # Man (1.8-7.7) K/mm3 Band Neutrophils # K/mm3 Lymphocytes # (Manual) (1.2-5.4) K/mm3 Abs React Lymphs (Man) K/mm3 Monocytes # (Manual) (0.0-0.8) K/mm3 Eosinophils # (Manual) (0.0-0.4) K/mm3 Basophils # (Manual) (0.0-0.1) K/mm3 Metamyelocytes # K/mm3 Myelocytes # K/mm3 Promyelocytes # K/mm3 Blast Cells # K/mm3 WBC Morphology Hypersegmented Neuts Hyposegmented Neuts Hypogranular Neuts Smudge Cells Toxic Granulation Toxic Vacuolation Dohle Bodies Pelger-Huet Anomaly Stanislaw Rods Platelet Estimate Clumped Platelets Plt Clumps, EDTA Large Platelets Giant Platelets Platelet Satelliting Plt Morphology Comment RBC Morphology Dimorphic RBCs Polychromasia Hypochromasia Poikilocytosis Anisocytosis Microcytosis Macrocytosis Spherocytes Pappenheimer Bodies Sickle Cells Target Cells Tear Drop Cells Ovalocytes Helmet Cells Chen-St. Libory Bodies [place] Rings [place] Cells Bite Cells Crenated Cell Elliptocytes Acanthocytes (Spur) Rouleaux Hemoglobin C Crystals Schistocytes Malaria parasites Alexis Bodies Hem Pathologist Commnt Sodium (137-145) mmol/L Potassium (3.6-5.0) mmol/L Chloride (98-107) mmol/L Carbon Dioxide (22-30) mmol/L Anion Gap mmol/L BUN (7-17) mg/dL Creatinine (0.7-1.2) mg/dL Estimated GFR ml/min BUN/Creatinine Ratio % Glucose (65-100) mg/dL Calcium (8.4-10.2) mg/dL HCG, Qual (Negative) Blood Type O POSITIVE Antibody Screen Positive Crossmatch See Detail - Medical Decision Making diagnostic results discussed with patient Transfusion ordered for ED Critical care attestation.: If time is entered above; I have spent that time in minutes in the direct care of this critically ill patient, excluding procedure time. ED Disposition Clinical Impression: Anemia requiring transfusions, Menorrhagia Disposition: OP ADMIT IP TO THIS HOSP Is pt being admited?: Yes Does the pt Need Aspirin: No Condition: Fair Referrals: MARY BLAS MD [Primary Care Provider] - 3-5 Days
[2019-10-06] MEDS ORDERED: ACETAMINOPHEN 650 MG RECT SUPP PR PRN (03:08)
--- NOTE | 2019-10-06 03:14 | History and Physical Report ---
History of Present Illness Date of examination: 10/06/19 Date of admission: 10/05/19 22:41 Chief complaint: vaginal bleeding History of present illness: pt with long h/o fibroids and menorrhagia present with vaginal bleeding stating "I think I may need blood." Pt is a pt of Dr. Gaspra and did have novasure in 2018 in an attempt to treat the bleeding. Pt admitted from ER and is currenly getting one unit of two due to hgb being 5.7 Past History : 7 Term Births: 6 Premature Births: 0 Living Children: 6 Para: 7 Mult. Births: 0 Prev : 2 Aborta: 0 Spont. Ab: 0 Ectopics: 0 # 1 Delivery date: 11/11/1995 Weeks Gestation: 41 Delivery type: Hours of labor: 0 Anesthesia type: spinal Delivery location: [place] Sex: Male weight: 6lbs 1oz Name: "Alfred" Comments: Breech # 2 Delivery date: 06/22/1997 Weeks Gestation: 40 Delivery type: Hours of labor: 6 Anesthesia type: epidural Delivery location: [place] Sex: Female weight: [id number] Name: Obi # 3 Delivery date: 08/10/1999 Weeks Gestation: 40 Delivery type: Anesthesia type: epidural Delivery location: [place] Infant Sex: Female weight: 7lb8oz Name: Emani # 4 Delivery date: 03/17/2003 Weeks Gestation: 40 Delivery type: Hours of labor: 0 Anesthesia type: spinal [facility]: [facility] Infant Sex: Female weight: 8lb Name: Sherin Comments: Breech # 5 Delivery date: 09/23/2004 Weeks Gestation: 40 Delivery type: Hours of labor: 6 Anesthesia type: epidural Delivery location: [facility] Sex: Female weight: [id number] Name: Patience # 6 Delivery date: 01/04/2009 Weeks Gestation: 40 Delivery type: Hours of labor: 4 Anesthesia type: none Delivery location: [facility] Infant Sex: Female weight: 7lb 0oz Name: Hope # 7 Delivery date: 11/27/2010 Weeks Gestation: 39 Delivery type: Delivery location: [facility] Infant Sex: Male CLINIC MD ASSOCIATE History Operations: x3 + BTL Abnormal PAP: negative Uterine Anomaly: negative Infection History HIV Risk Eval: no Hx of STD: none Active Medications (reviewed today): LYSTEDA 650 MG ORAL TABLET (TRANEXAMIC ACID) 1300 mg 3 times daily (3900 mg/day) for up to 5 days during monthly menstruation Current Allergies (reviewed today): No known allergies Past Medical History: Reviewed history from 10/28/2010 and no changes required: Negative Past Medical History Past Surgical History: Reviewed history from 10/28/2017 and no changes required: x3 + BTL Family History Summary: Reviewed history and no changes required: 05/21/2018 General Comments - FH: Family History Breast Cancer Family History Coronary Heart Disease male < 55 Family History of Diabetes Family History of Hypertension No Family History of Cervical Cancer No Family History of Colon Cancer No Family History of Ovarvian Cancer Risk Factors: Smoked Tobacco Use: Never smoker Smokeless Tobacco Use: Never Passive smoke exposure: no Drug use: no HIV high-risk behavior: no Alcohol use: no Exercise: yes Seatbelt use: 100 % Past History Past Medical History: no pertinent history, other Past Surgical History: section Social history: no significant social history - Obstetrical History : 7 Para: 6 Number of Living Children: 6 Medications and Allergies Allergies Allergy/AdvReac Type Severity Reaction Status Date / Time No Known Allergies Allergy Verified 05/15/18 00:28 Home Medications Medication Instructions Recorded Confirmed Last Taken Type Acetaminophen [Tylenol Extra 1,000 mg PO TID PRN 05/17/18 05/21/18 05/19/18 H istory Strength] Acetaminophen/Codeine [Tylenol #3] 1 tab PO Q4HR PRN #20 tablet 05/21/18 U nknown Rx DOXYCYCLINE Hyclate [Vibramycin 100 mg PO Q12HR #14 capsule 05/21/18 Unknown Rx CAP] Ibuprofen [Motrin 800 MG tab] 800 mg PO Q6H PRN #30 tablet 05/21/18 Unknown Rx Ferrous Sulfate [Feosol 325 MG tab] 325 mg PO QDAY #30 tablet 01/26/19 Unknown Rx Ondansetron [Zofran Odt] 4 mg PO Q8HR PRN #14 tab.rapdis 01/26/19 Unknown Rx medroxyPROGESTERone ACETATE 10 mg PO QDAY #10 tablet 03/06/19 Unknown Rx [Provera] traMADoL [Ultram 50 MG tab] 50 mg PO Q4HR PRN #14 tablet 01/26/19 Unknown Rx - Vital Signs Vital signs: Vital Signs Temp Pulse Resp BP Pulse Ox 98.3 F 73 18 133/80 99 10/05/19 18:54 10/05/19 18:54 10/05/19 18:54 10/05/19 18:54 10/05/19 18:54 Temp Pulse Resp BP Pulse Ox 98.0 F 65 18 119/63 99 10/06/19 00:32 10/06/19 02:32 10/06/19 02:02 10/06/19 02:32 10/06/19 02:02 - Physical Exam Cardiovascular: Normal S1, Normal S2 Lungs: Positive: Clear to auscultation, Normal air movement Abdomen: Positive: normal appearance, soft. Negative: distention, tenderness, guarding Genitourinary (Female): Positive: other (deferred as pt states she is no longer bleeding) Results Result Diagrams: 10/06/19 20:27 10/05/19 19:04 Abnormal lab results 10/05/19 10/05/19 10/05/19 Range/Units 19:04 19:04 20:30 RBC 3.61 L (3.65-5.03) M/mm3 Hgb 5.7 L* (10.1-14.3) gm/dl Hct 20.6 L (30.3-42.9) % MCV 57 L (79-97) fl MCH 16 L (28-32) pg MCHC 28 L (30-34) % RDW 20.6 H (13.2-15.2) % Plt Count 600 H (140-440) K/mm3 Seg Neuts % (Manual) 73.0 H (40.0-70.0) % Eosinophils % (Manual) 8.0 H (0.0-4.3) % Eosinophils # (Manual) 0.7 H (0.0-0.4) K/mm3 Chloride 108.1 H (98-107) mmol/L Carbon Dioxide 21 L (22-30) mmol/L Creatinine 0.6 L (0.7-1.2) mg/dL Crossmatch See Detail All other labs normal. Assessment and Plan - Patient Problems (1) Anemia requiring transfusions Current Visit: Yes Status: Acute Plan to address problem: -2 units -develop a plan to move toward treatment for the bleeding as the ablation has failed. (2) Menorrhagia Current Visit: Yes Status: Acute Qualifiers: Menorrahagia type: with regular cycle Qualified Code(s): N92.0 - Excessive and frequent menstruation with regular cycle Plan to address problem: -s/p ablation 2018 -provera for now -desires definitive therapy via hysterectomy (3) Uterine fibroid Current Visit: Yes Status: Acute
[2019-10-06] MEDS: ACETAMINOPHEN 325 MG TAB PO PRN ×3 (03:33→17:37)
[2019-10-06] MEDS: medroxyPROGESTERone ACETATE 5 MG TAB PO SCH ×2 (09:00→23:01)
[2019-10-06 11:04] LABS: Hematocrit 23.6 % (30.3-42.9); Hemoglobin 6.9 gm/dl (10.1-14.3)
[2019-10-06] MEDS ORDERED: SODIUM CHLORIDE 0.9% 500 ML 500 ML IV NR (11:46)
[2019-10-06 20:53] LABS: Hemoglobin 7.9 gm/dl (10.1-14.3)
[2019-10-07] MEDS: medroxyPROGESTERone ACETATE 5 MG TAB PO SCH ×2 (09:09→09:14)
[2019-10-07] MEDS: ACETAMINOPHEN 325 MG TAB PO PRN (14:51)
--- NOTE | 2019-10-07 17:31 | Discharge Summary ---
Providers - Providers Date of Admission: 10/05/19 22:41 Date of discharge: 10/07/19 Attending physician: AKOSUA NAVA Primary care physician: ELYSSA PEREZ Hospitalization Reason for admission: menorrhalgia with anemia Condition: Fair Pertinent studies: Pelvic ultrasound Procedures: Blood transfusion 3 units packed red blood cells and pelvic ultrasound Hospital course: Please see history and physical for details. Patient was admitted with with a hemoglobin of 5.7 probably due to menorrhalgia from her leiomyomata. Patient received 3 units of packed red blood cells which increased her hemoglobin 7.9. Patient denied any orthostatic symptoms she also received Provera and was not dunn ving active bleeding at time of discharge. Disposition: - TO HOME OR SELFCARE - Discharge Diagnoses (1) Anemia requiring transfusions Status: Acute (2) Menorrhagia Status: Chronic Qualifiers: Menorrahagia type: with regular cycle Qualified Code(s): N92.0 - Excessive and frequent menstruation with regular cycle (3) Uterine fibroid Status: Chronic Qualifiers: Uterine leiomyoma location: intramural Qualified Code(s): D25.1 - Intramural leiomyoma of uterus Core Measure Documentation - Palliative Care Palliative Care/ Comfort Measures: Not Applicable - Core Measures Any of the following diagnoses?: none Exam - Constitutional Vitals: Temp Pulse Resp BP Pulse Ox 98.8 F 78 18 130/69 97 10/07/19 13:11 10/07/19 13:11 10/07/19 13:11 10/07/19 13:11 10/07/19 13:11 General appearance: Present: no acute distress - Respiratory Respiratory effort: normal - Cardiovascular Rhythm: regular - Extremities Extremities: no ischemia, No edema - Abdominal General gastrointestinal: Present: soft, non-tender - Rectal Rectal Exam: deferred - Integumentary Integumentary: Present: clear, warm, dry - Psychiatric Psychiatric: appropriate mood/affect, intact judgment & insight Plan Activity: advance as tolerated Diet: regular Additional Instructions: Patient office for fever, chills, nausea, vomiting, pain uncontrolled by pain medications or severe heavy vaginal bleeding. Patient patient called office and make an appointment for follow-up. Patient is instructed hysterectomy and workup will be done Follow up with: MARY BLAS MD [Referring] - 3-5 Days
[2019-10-07 18:23] VITALS: BP 118/76
== END 2019-10-07 22:50 | disposition home or self-care (01) ==
LOC: ED 18:24 → OB 22:41
PROVIDERS: ADMIT Obstetrics & Gynecology; ATTEND Obstetrics & Gynecology
DX: N93.9 Abnormal uterine and vaginal bleeding, unspecified (principal); N92.0 Excessive and frequent menstruation with regular cycle; D25.9 Leiomyoma of uterus, unspecified; D64.9 Anemia, unspecified; Z98.891 History of uterine scar from previous surgery
CPT/HCPCS: 36415; 36430; 76856; 80048; 84703; 85007; 85014; 85018; 85025; 86850; 86870; 86900; 86901; 86922; 99284; G0378; J7040; P9016

== ENCOUNTER 2021-06-29 20:21 | Emergency (ER) | payer MEDICAID, OTHER ==
[2021-06-29 23:13] LABS: Basophils # (Auto) 0.1 K/mm3 (0.0-0.1); Basophils % (Auto) 1.2 % (0.0-1.8); Eosinophils % (Auto) 11.4 % (0.0-4.3); Lymphocytes # (Auto) 2.4 K/mm3 (1.2-5.4); Lymphocytes % (Auto) 27.1 % (13.4-35.0); Mean Corpuscular HGB Conc 29 % (30-34); Monocytes # (Auto) 0.5 K/mm3 (0.0-0.8); Monocytes % (Auto) 6.1 % (0.0-7.3); Platelet Count 388 K/mm3 (140-440); Red Blood Count 4.26 M/mm3 (3.65-5.03); Red Cell Distribution Width 19.1 % (13.2-15.2)
[2021-06-29 23:38] LABS: Hematocrit 26.3 % (30.3-42.9); Hemoglobin 7.6 gm/dl (10.1-14.3); Mean Corpuscular Volume 62 fl (79-97)
[2021-06-30] MEDS ORDERED: SODIUM CHLORIDE 0.9% 1000 ML 1,000 ML IV ONE (08:25)
[2021-06-30 09:36] LABS: Alanine Aminotransferase 7 units/L (7-56); Albumin 4.2 g/dL (3.9-5); BUN/Creatinine Ratio 14; Blood Urea Nitrogen 14 mg/dL (7-17); Calcium 9.4 mg/dL (8.4-10.2); Hemolysis Index 2
--- NOTE | 2021-06-30 10:25 | Emergency Department Report ---
ED Female HPI - General Chief complaint: Vaginal Bleeding Stated complaint: FATIGUE,SOB Time Seen by Provider: 06/30/21 08:13 Source: patient Mode of arrival: Ambulatory Limitations: No Limitations - History of Present Illness Initial comments: This is a 46-year-old female nontoxic, well nourished in appearance, no acute signs of distress presents to the ED with c/o of dizziness with vaginal bleeding x1 month. Patient stated has history of abnormal vaginal bleeding and blood transfusions. Patient denies any headache or head trauma. Patient stated the dizziness is worsened with position change. Patient denies any numbness, tingling, headache, stiff neck, chest pain, shortness of breathe, numbness or tingling. Denies any visual changes or blurry vision. Denies any drug allergies. Stated has history of uterine fibroids with abnormal menstural cycles. Patient denies taking iron supplements as a makes her constipated. Patient does follow-up with her PATIENT SERVICES COORDINATOR. MD Complaint: vaginal bleeding, other (dizziness) -: month(s) Severity scale (0 -10): 0 Improves with: none Worsens with: none Are you Now?: No Associated Symptoms: vaginal bleeding. denies: vaginal discharge, abdominal pain, nausea/vomiting, fever/chills, headaches, loss of appetite, dysuria, hematuria, rash, seizure, shortness of breath, syncope, weakness - Related Data Home Medications Medication Instructions Recorded Confirmed Last Taken Acetaminophen [Tylenol Extra 1,000 mg PO TID PRN 05/17/18 05/21/18 05/19/18 Strength] Previous Rx's Medication Instructions Recorded Last Taken Type Acetaminophen/Codeine [Tylenol #3] 1 tab PO Q4HR PRN #20 tablet 05/21/18 Unknown Rx DOXYCYCLINE Hyclate [Vibramycin 100 mg PO Q12HR #14 capsule 05/21/18 Unknown Rx CAP] Ibuprofen [Motrin 800 MG tab] 800 mg PO Q6H PRN #30 tablet 05/21/18 Unknown Rx Ferrous Sulfate [Feosol 325 MG tab] 325 mg PO QDAY #30 tablet 01/26/19 Unknown Rx Ondansetron [Zofran Odt] 4 mg PO Q8HR PRN #14 tab.rapdis 01/26/19 Unknown Rx medroxyPROGESTERone ACETATE 10 mg PO QDAY #10 tablet 01/26/19 Unknown Rx [Provera] traMADoL [Ultram 50 MG tab] 50 mg PO Q4HR PRN #14 tablet 01/26/19 Unknown Rx Ferrous Sulfate [Feosol 325 MG tab] 325 mg PO BID #60 tablet 10/07/19 Unknown Rx Ibuprofen [Motrin 800 MG tab] 800 mg PO Q6H PRN #30 tablet 10/07/19 Unknown Rx medroxyPROGESTERone ACETATE 10 mg PO BID #10 tablet 10/07/19 Unknown Rx [Provera] Ferrous Sulfate [Feosol 325 MG tab] 325 mg PO BID #60 tablet 06/30/21 Unknown Rx Allergies Allergy/AdvReac Type Severity Reaction Status Date / Time No Known Allergies Allergy Verified 05/15/18 00:28 ED Review of Systems ROS: Stated complaint: FATIGUE,SOB Other details as noted in HPI Comment: All other systems reviewed and negative Constitutional: denies: chills, fever Eyes: denies: eye pain, eye discharge, vision change ENT: denies: ear pain, throat pain Respiratory: denies: cough, shortness of breath, wheezing Cardiovascular: denies: chest pain, palpitations Endocrine: no symptoms reported Gastrointestinal: denies: abdominal pain, nausea, diarrhea Genitourinary: abnormal menses. denies: urgency, dysuria, frequency, hematuria, discharge, dyspareunia Musculoskeletal: denies: back pain, joint swelling, arthralgia Skin: denies: rash, lesions Neurological: denies: headache, weakness, paresthesias Psychiatric: denies: anxiety, depression Hematological/Lymphatic: denies: easy bleeding, easy bruising ED Past Medical Hx - Past Medical History Previous Medical History?: Yes Hx Hypertension: No Hx Headaches / Migraines: Yes Hx HIV: No Additional medical history: Uterine fibroids. ANEMIA - Surgical History Past Surgical History?: Yes Additional Surgical History: C section, ablation - Social History Smoking Status: Never Smoker Substance Use Type: None - Medications Home Medications: Home Medications Medication Instructions Recorded Confirmed Last Taken Type Acetaminophen [Tylenol Extra 1,000 mg PO TID PRN 05/17/18 05/21/18 05/19/18 History Strength] Acetaminophen/Codeine [Tylenol #3] 1 tab PO Q4HR PRN #20 tablet 05/21/18 Unknown Rx DOXYCYCLINE Hyclate [Vibramycin 100 mg PO Q12HR #14 capsule 05/21/18 Unknown Rx CAP] Ibuprofen [Motrin 800 MG tab] 800 mg PO Q6H PRN #30 tablet 05/21/18 Unknown Rx Ferrous Sulfate [Feosol 325 MG tab] 325 mg PO QDAY #30 tablet 01/26/19 Unknown Rx Ondansetron [Zofran Odt] 4 mg PO Q8HR PRN #14 tab.rapdis 01/26/19 Unknown Rx medroxyPROGESTERone ACETATE 10 mg PO QDAY #10 tablet 01/26/19 Unknown Rx [Provera] traMADoL [Ultram 50 MG tab] 50 mg PO Q4HR PRN #14 tablet 01/26/19 Unknown Rx Ferrous Sulfate [Feosol 325 MG tab] 325 mg PO BID #60 tablet 10/07/19 Unknown Rx Ibuprofen [Motrin 800 MG tab] 800 mg PO Q6H PRN #30 tablet 10/07/19 Unknown Rx medroxyPROGESTERone ACETATE 10 mg PO BID #10 tablet 10/07/19 Unknown Rx [Provera] Ferrous Sulfate [Feosol 325 MG tab] 325 mg PO BID #60 tablet 06/30/21 Unknown Rx ED Physical Exam - General Limitations: No Limitations General appearance: alert, in no apparent distress - Head Head exam: Present: atraumatic, normocephalic - Eye Eye exam: Present: normal appearance - Neck Neck exam: Present: normal inspection, full ROM. Absent: lymphadenopathy - Respiratory Respiratory exam: Present: normal lung sounds bilaterally. Absent: respiratory distress, wheezes, rales, rhonchi, stridor, chest wall tenderness, accessory muscle use, decreased breath sounds, prolonged expiratory - Cardiovascular Cardiovascular Exam: Present: regular rate, normal rhythm, normal heart sounds. Absent: bradycardia, tachycardia, irregular rhythm, systolic murmur, diastolic murmur, rubs, gallop - GI/Abdominal GI/Abdominal exam: Present: soft, normal bowel sounds. Absent: distended, tenderness, guarding, rebound, rigid, diminished bowel sounds - Extremities Exam Extremities exam: Present: normal inspection, full ROM - Back Exam Back exam: Present: normal inspection, full ROM. Absent: tenderness, CVA tenderness (R), CVA tenderness (L), muscle spasm, paraspinal tenderness, vertebral tenderness, rash noted - Neurological Exam Neurological exam: Present: alert, oriented X3, normal gait - Psychiatric Psychiatric exam: Present: normal affect, normal mood - Skin Skin exam: Present: warm, dry, intact, normal color. Absent: rash ED Course Vital Signs 06/29/21 06/29/21 20:21 22:01 Temperature 980.6 F H 98.8 F Pulse Rate 67 75 Respiratory 18 18 Rate Blood Pressure 124/71 Blood Pressure 120/72 [Left] O2 Sat by Pulse 100 100 Oximetry - Reevaluation(s) Reevaluation #1: 06/30/21 10:36 Patient is speaking in full sentences with no signs of distress noted. Reevaluation #2: 06/30/21 110:32 IV fluids and IV line has performed and been given by Bertha KWOK. ED Medical Decision Making - Lab Data Result diagrams: 06/29/21 22:24 06/30/21 Unknown Lab Results 06/29/21 06/29/21 06/29/21 Range/Units 22:24 22:24 22:24 WBC 8.8 (4.5-11.0) K/mm3 RBC 4.26 (3.65-5.03) M/mm3 Hgb 7.6 L (10.1-14.3) gm/dl Hct 26.3 L (30.3-42.9) % MCV 62 L (79-97) fl MCH 18 L (28-32) pg MCHC 29 L (30-34) % RDW 19.1 H (13.2-15.2) % Plt Count 388 (140-440) K/mm3 Lymph % (Auto) 27.1 (13.4-35.0) % [place] % (Auto) 6.1 (0.0-7.3) % Eos % (Auto) 11.4 H (0.0-4.3) % Baso % (Auto) 1.2 (0.0-1.8) % Lymph # (Auto) 2.4 (1.2-5.4) K/mm3 [place] # (Auto) 0.5 (0.0-0.8) K/mm3 Eos # (Auto) 1.0 H (0.0-0.4) K/mm3 Baso # (Auto) 0.1 (0.0-0.1) K/mm3 Seg Neutrophils % 54.2 (40.0-70.0) % Seg Neutrophils # 4.8 (1.8-7.7) K/mm3 Sodium (137-145) mmol/L Potassium (3.6-5.0) mmol/L Chloride (98-107) mmol/L Carbon Dioxide (22-30) mmol/L Anion Gap mmol/L BUN (7-17) mg/dL Creatinine (0.6-1.2) mg/dL Estimated GFR ml/min BUN/Creatinine Ratio % Glucose (65-100) mg/dL Calcium (8.4-10.2) mg/dL Total Bilirubin (0.1-1.2) mg/dL AST (5-40) units/L ALT (7-56) units/L Alkaline Phosphatase (35-129) units/L Total Protein (6.3-8.2) g/dL Albumin (3.9-5) g/dL Albumin/Globulin Ratio % HCG, Quant < 2 (0-4) mIU/mL Blood Type O POSITIVE 06/30/21 Range/Units Unknown WBC (4.5-11.0) K/mm3 RBC (3.65-5.03) M/mm3 Hgb (10.1-14.3) gm/dl Hct (30.3-42.9) % MCV (79-97) fl MCH (28-32) pg MCHC (30-34) % RDW (13.2-15.2) % Plt Count (140-440) K/mm3 Lymph % (Auto) (13.4-35.0) % [place] % (Auto) (0.0-7.3) % Eos % (Auto) (0.0-4.3) % Baso % (Auto) (0.0-1.8) % Lymph # (Auto) (1.2-5.4) K/mm3 [place] # (Auto) (0.0-0.8) K/mm3 Eos # (Auto) (0.0-0.4) K/mm3 Baso # (Auto) (0.0-0.1) K/mm3 Seg Neutrophils % (40.0-70.0) % Seg Neutrophils # (1.8-7.7) K/mm3 Sodium 141 (137-145) mmol/L Potassium 4.2 (3.6-5.0) mmol/L Chloride 103.7 (98-107) mmol/L Carbon Dioxide 25 (22-30) mmol/L Anion Gap 17 mmol/L BUN 14 (7-17) mg/dL Creatinine 1.0 (0.6-1.2) mg/dL Estimated GFR > 60 ml/min BUN/Creatinine Ratio 14 % Glucose 102 H (65-100) mg/dL Calcium 9.4 (8.4-10.2) mg/dL Total Bilirubin 0.20 (0.1-1.2) mg/dL AST 17 (5-40) units/L ALT 7 (7-56) units/L Alkaline Phosphatase 72 (35-129) units/L Total Protein 7.3 (6.3-8.2) g/dL Albumin 4.2 (3.9-5) g/dL Albumin/Globulin Ratio 1.4 % HCG, Quant (0-4) mIU/mL Blood Type - Medical Decision Making This is a 46-year-old female that presents with iron deficiency anemia, dizziness with abnormal menstrual cycle. Patient is stable and was examined by me. Labs are unremarkable. Urine obtained. Orthostatic vital signs obtained and within normal limits. Patient received 2 L of normal saline which she stated his symptoms of dizziness has subsided and resolved. Patient is neurologically stable. Patient was instructed to Follow-up with a PATIENT SERVICES COORDINATOR doctor in 3-5 days or if symptoms worsen and continue return to emergency room as soon as possible. At time of discharge, the patient does not seem toxic or ill in appearance. No acute signs of distress noted. Patient agrees to discharge treatment plan of care. No further questions noted by the patient. Critical care attestation.: If time is entered above; I have spent that time in minutes in the direct care of this critically ill patient, excluding procedure time. ED Disposition Clinical Impression: Dysfunctional uterine bleeding, Dizziness Iron deficiency anemia Qualifiers: Iron deficiency anemia type: chronic blood loss Qualified Code(s): D50.0 - Iron deficiency anemia secondary to blood loss (chronic) Menorrhagia Qualifiers: Menorrhagia type: with irregular cycle Qualified Code(s): N92.1 - Excessive and frequent menstruation with irregular cycle Disposition: DC-01 TO HOME OR SELFCARE Is pt being admited?: No Does the pt Need Aspirin: No Condition: Stable Instructions: Abnormal Uterine Bleeding Additional Instructions: Follow-up with a PATIENT SERVICES COORDINATOR doctor in 3-5 days or if symptoms worsen and continue return to emergency room as soon as possible. Prescriptions: Ferrous Sulfate [Feosol 325 MG tab] 325 mg PO BID #60 tablet Referrals: PRIMARY CARE, [Primary Care Provider] - 3-5 Days [facility] [Provider Group] - 3-5 Days [facility] [Provider Group] - 3-5 Days Forms: Work/School Release Form(ED) Time of Disposition: 10:39
[2021-06-30 10:37] VITALS: BP 120/72
== END 2021-06-30 10:40 | disposition home or self-care (01) ==
LOC: ED 20:21
DX: N92.1 Excessive and frequent menstruation with irregular cycle (principal); N93.9 Abnormal uterine and vaginal bleeding, unspecified; D50.0 Iron deficiency anemia secondary to blood loss (chronic); G43.909 Migraine, unspecified, not intractable, without status migrainosus; Z98.890 Other specified postprocedural states; Z79.899 Other long term (current) drug therapy
CPT/HCPCS: 36415; 80053; 84702; 85025; 86900; 86901; 99283; J7030